=== PATIENT | female | born 1965 | race Caucasian/White ===

== ENCOUNTER 2020-10-10 10:59 | Emergency (ER) | payer OTHER ==
[2020-10-10 11:50] LABS: EOSINOPHIL 2.7 % (0-5); HCT 44.9 % (37.0-47.0); HGB 15.6 g/dl (12.5-16.0); LYMPHOCYTE 28.8 % (15-48); MCH 30.9 pg (25.0-31.0); MCHC 34.7 g/dL (32.0-36.0); MCV 88.9 fL (78.0-100.0); MONOCYTE 7.7 % (0-12); MPV 12.6 fL (6.0-9.5); NEUTROPHIL 59.5 % (41-80); NRBC 0; PLT 232 K/uL (150-400); RBC 5.05 M/uL (4.20-5.40); RDW 13.1 % (11.5-14.0); WBC 7.1 K/uL (4.0-10.5)
[2020-10-10 12:04] LABS: ALBUMIN 4.4 g/dL (3.4-5.0); BILIRUBIN - TOTAL 0.5 mg/dL (0.2-1.0); BUN/CREAT RATIO (CALC) 14.4 RATIO; CREATININE 0.97 mg/dL (0.51-0.95); GLOBULIN (CALCULATION) 3.9 g/dL; MAGNESIUM 2.1 mg/dL (1.8-2.4); POTASSIUM 3.4 mmol/L (3.5-5.1); TOTAL PROTEIN 8.3 g/dL (6.4-8.2)
[2020-10-10 12:09] LABS: INR 1.01 (0.9-1.2); PROTHROMBIN TIME 12.6 SECONDS (11.4-13.6); PTT 33.3 SECONDS (22.2-34.7)
[2020-10-10 12:10] LABS: D-DIMER 0.34 ug/mLFEU (0.00-0.41)
[2020-10-10 12:35] LABS: PRO-BNP 14 pg/mL (<125)
== END 2020-10-10 16:00 | disposition home or self-care (01) ==
LOC: FER 10:59
PROVIDERS: Emergency Medicine
DX: R07.89 Other chest pain (principal); I10 Essential (primary) hypertension
CPT/HCPCS: 36415; 71046; 80053; 83735; 83880; 84484; 85025; 85379; 85610; 85730; 93005

== ENCOUNTER 2020-12-17 19:52 | Emergency (ER) | payer OTHER ==
[2020-12-17 20:29] LABS: BASOPHIL 0.8 % (0-2); EOSINOPHIL 2.1 % (0-5); HCT 42.4 % (37.0-47.0); HGB 14.4 g/dl (12.5-16.0); LYMPHOCYTE 29.6 % (15-48); MCH 30.8 pg (25.0-31.0); MCV 90.6 fL (78.0-100.0); MPV 11.5 fL (6.0-9.5); NEUTROPHIL 60.4 % (41-80); NRBC 0; PLT 231 K/uL (150-400); RBC 4.68 M/uL (4.20-5.40); RDW 13.1 % (11.5-14.0); WBC 8.5 K/uL (4.0-10.5)
[2020-12-17 20:40] LABS: INR 0.99 (0.9-1.2); PROTHROMBIN TIME 12.4 SECONDS (11.4-13.6); PTT 32.6 SECONDS (22.2-34.7)
[2020-12-17 20:41] LABS: D-DIMER 0.41 ug/mLFEU (0.00-0.41)
[2020-12-17 20:46] LABS: ALBUMIN 4.1 g/dL (3.4-5.0); BILIRUBIN - TOTAL 0.4 mg/dL (0.2-1.0); BUN/CREAT RATIO (CALC) 14.4 RATIO; CREATININE 1.11 mg/dL (0.51-0.95); GLOBULIN (CALCULATION) 3.7 g/dL; POTASSIUM 3.9 mmol/L (3.5-5.1); TOTAL PROTEIN 7.8 g/dL (6.4-8.2)
[2020-12-17 21:08] LABS: PRO-BNP 25 pg/mL (<125)
== END 2020-12-18 00:07 | disposition home or self-care (01) ==
LOC: FER 19:52
PROVIDERS: Emergency Medicine Emergency Medical Services
DX: R07.89 Other chest pain (principal); R00.1 Bradycardia, unspecified; R11.0 Nausea; I10 Essential (primary) hypertension
CPT/HCPCS: 36415; 71045; 80053; 83690; 83880; 84484; 85025; 85379; 85610; 85730; 93005

== ENCOUNTER 2021-07-28 09:53 | Emergency (ER) | payer OTHER ==
[2021-07-28] MEDS ORDERED: NAPROXEN500 MG PO (11:59)
[2021-07-28] MEDS ORDERED: ROBAXIN750 MG PO (11:59)
== END 2021-07-28 12:09 | disposition home or self-care (01) ==
LOC: FER 09:53
DX: S13.4XXA Sprain of ligaments of cervical spine, initial encounter (principal); S23.3XXA Sprain of ligaments of thoracic spine, initial encounter; S00.83XA Contusion of other part of head, initial encounter; I10 Essential (primary) hypertension; V49.40XA Driver injured in collision with unspecified motor vehicles in traffic accident, initial encounter; Y92.410 Unspecified street and highway as the place of occurrence of the external cause
CPT/HCPCS: 70450; 72125; 72128